=== PATIENT | male | born 1970 | race Two or more races ===

== ENCOUNTER 2016-08-16 23:05 | Emergency (ER) | payer SELFPAY ==
[~2016-08-16] VITALS: Ht 172.7 cm; Wt 63.5 kg
--- NOTE | 2016-08-16 23:10 | NUR ---
PT BIB [facility] FOR ETOH INTOX. ALERT AND RESPONSIVE. DENIES COMPLAINT. NAD NOTED. RESP EVEN UNLABORED. IN ER BED 12.
--- NOTE | 2016-08-17 01:29 | NUR ---
PT SLEEPING IN NO APPARENT DISTRESS, PT ON MONITOR, MD LC MADE AWARE WILL CONTINUE TO MONITOR.
--- NOTE | 2016-08-17 04:16 | NUR ---
PT SLEEPING IN NO DISTRESS ON HIS LEFT SIDE, PT ON MONITOR, VSS MD MADE AWARE WILL CONTINUE TO MONITOR.
[2016-08-17 05:45] VITALS: BP 123/78
--- NOTE | 2016-08-17 05:45 | NUR ---
Patient discharged to home in stable condition. Written and verbal after care instructions given. Patient verbalizes understanding of instruction. pt ambulatory with a steady gait VITAL SIGNS WITHIN NORMAL LIMITS.
== END 2016-08-17 05:46 | disposition home or self-care (01) ==
LOC: ER 23:09 → EDBD 23:09 → ER 08-17 05:46
DX: F10.129 Alcohol abuse with intoxication, unspecified (principal); I10 Essential (primary) hypertension
CPT/HCPCS: 99283; A4606; Z7610